=== PATIENT | male | born 1985 | race Caucasian/White ===

== ENCOUNTER 2020-03-12 14:19 | Inpatient (IN) | payer MEDICAID ==
[~2020-03-12] VITALS: Ht 165.1 cm; Wt 73.5 kg
[2020-03-12 15:26] LABS: BASOPHILS % 0.6 % (0.0-2.0); EOSINOPHILS % 1.8 % (0.0-5.0); HEMATOCRIT. 48.6 % (42.0-52.0); HEMOGLOBIN. 16.1 g/dL (14.0-18.0); LYMPHOCYTES % 22.2 % (20.0-50.0); MEAN CORPUSCULAR HEMOGLOBIN 32.6 pg (28.0-32.0); MEAN CORPUSCULAR VOLUME 98.7 fL (80.0-94.0); MEAN PLATELET VOLUME 10.2 fl (7.4-10.4); MONOCYTES % 6.1 % (2.0-8.0); NEUTROPHILS % 69.3 % (40.0-76.0); PLATELET 253 x1000/uL (130-400); RED BLOOD CELL COUNT 4.93 mill/uL (4.7-6.1); RED CELL DISTRIBUTION WIDTH 15.3 % (11.6-14.6)
[2020-03-12 15:28] LABS: CHLORIDE 94 mEq/L (98-107)
[2020-03-12 15:30] LABS: INR 1.1; PROTHROMBIN TIME 11.4 sec (9.6-11.0)
[2020-03-12] MEDS ORDERED: SODIUM CHLORIDE 0.9% 1,000 ML IV ONE (15:30)
[2020-03-12] MEDS ORDERED: MORPHINE SULFATE 4 MG/ML CPJ (NOT FOR IM USE) IV ONE (15:30)
[2020-03-12] MEDS ORDERED: INSULIN REGULAR (HUMULIN R) 300UNITS/3ML IV ONE (15:45)
[2020-03-12] MEDS ORDERED: CALCIUM GLUCONATE 1,000 MG in DEXT 5% WATER 100 ML IV ONE (15:45)
[2020-03-12] MEDS ORDERED: FUROSEMIDE 100MG/10ML VIAL IV ONE (15:45)
[2020-03-12] MEDS ORDERED: DEXTROSE 50% WATER 50ML SYRINGE IV ONE (15:45)
[2020-03-12 21:00] VITALS: BP 102/68
[2020-03-12] MEDS ORDERED: DIAZ2TAB3 PO (22:51)
[2020-03-12] MEDS ORDERED: FOLI-43 PO (22:51)
[2020-03-12] MEDS ORDERED: CHOL3000 PO (22:51)
[2020-03-12] MEDS ORDERED: ESCI5SOL2 PO (22:51)
[2020-03-12] MEDS ORDERED: ATOR40TA70 PO (22:51)
[2020-03-12] MEDS ORDERED: CETI10TA6 PO (22:51)
[2020-03-12] MEDS ORDERED: CALC-586 PO (22:51)
[2020-03-12] MEDS ORDERED: AMLO10TA80 PO (22:51)
[2020-03-12] MEDS ORDERED: LOSA50TA41 PO (22:51)
[2020-03-12] MEDS ORDERED: TRAZ-251 PO (22:51)
[2020-03-12] MEDS ORDERED: FOLI0.8T23 PO (22:51)
[2020-03-12] MEDS ORDERED: OLME1TAB84 PO (22:51)
[2020-03-12] MEDS ORDERED: LORA2ORA5 PO (22:51)
[2020-03-12] MEDS ORDERED: HYDR-4135 PO (22:51)
[2020-03-12] MEDS ORDERED: ASPI-1497 PO (22:51)
[2020-03-12] MEDS ORDERED: ALLO100T PO (22:51)
[2020-03-12] MEDS ORDERED: CALC668T PO (22:51)
[2020-03-12] MEDS ORDERED: METO10TA3 PO (22:51)
[2020-03-12] MEDS ORDERED: CALC0.5C10 PO (22:51)
[2020-03-12] MEDS ORDERED: MORPHINE SULFATE 2 MG/ML CPJ (NOT FOR IM USE) IV PRN (23:15)
[2020-03-12] MEDS ORDERED: DIAZEPAM 2 MG TABLET PO SCH (23:30)
[2020-03-12] MEDS ORDERED: FAMOTIDINE 20MG TABLET PO SCH (23:30)
[2020-03-13] VITALS: BP 99/73
[2020-03-13] MEDS ORDERED: TRAZODONE HCL 50MG TABLET PO SCH (03:00)
[2020-03-13 04:00] VITALS: BP 103/57
[2020-03-13] MEDS ORDERED: SEVELAMER CARBONATE 800 MG TABLET PO SCH (07:50)
[2020-03-13] MEDS ORDERED: CALCIUM ACETATE 667MG CAPSULE PO SCH (07:50)
[2020-03-13 08:30] VITALS: BP 101/62
[2020-03-13] MEDS ORDERED: HYDROCHLOROTHIAZIDE 12.5MG CAPSULE PO SCH (09:00)
[2020-03-13] MEDS ORDERED: CETIRIZINE 10MG TABLET PO SCH (09:00)
[2020-03-13] MEDS ORDERED: CITALOPRAM HYDROBROMIDE 10MG TABLET PO SCH (09:00)
[2020-03-13] MEDS ORDERED: METOPROLOL TARTRATE 50MG TABLET PO SCH (09:00)
[2020-03-13] MEDS ORDERED: ENOXAPARIN 40MG/0.4ML SYR SUBCUT SCH (09:00)
[2020-03-13] MEDS ORDERED: FOLIC ACID/VITAMIN B COMP W-C TABLET PO SCH ×2 (09:00)
[2020-03-13] MEDS ORDERED: ENOXAPARIN 30MG/0.3ML SYR SUBCUT SCH (09:00)
[2020-03-13] MEDS ORDERED: ATORVASTATIN CALCIUM 40MG TABLET PO SCH ×2 (09:00→21:00)
[2020-03-13] MEDS ORDERED: FOLIC ACID 1MG TABLET PO SCH (09:00)
[2020-03-13] MEDS ORDERED: ALLOPURINOL 100 MG TABLET PO SCH ×2 (09:00→17:00)
[2020-03-13] MEDS ORDERED: DIAZEPAM 2 MG TABLET PO SCH (09:00)
[2020-03-13] MEDS ORDERED: CALCITRIOL 0.5MCG CAPSULE PO SCH (09:00)
[2020-03-13] MEDS ORDERED: LOSARTAN POTASSIUM 100 MG TABLET PO SCH (09:00)
[2020-03-13] MEDS ORDERED: ASPIRIN 81MG EC TABLET PO SCH (09:00)
[2020-03-13 12:00] VITALS: BP 95/61
[2020-03-13 16:15] VITALS: BP 100/63
[2020-03-13] MEDS ORDERED: FAMOTIDINE 20MG TABLET PO SCH (21:00)
== END 2020-03-13 19:30 | disposition home or self-care (01) | DRG 249 ==
LOC: ER 14:44 → 6WST 17:15 → EDBEDREQ 17:18 → ENRESERV 20:11
PROVIDERS: ADMIT Internal Medicine; ATTEND Internal Medicine
PROC: 5A1D70Z Performance of Urinary Filtration, Intermittent, Less than 6 Hours Per Day (ICD-10-PCS; principal; 2020-03-12)
DX: K52.9 Noninfective gastroenteritis and colitis, unspecified (principal); D63.1 Anemia in chronic kidney disease; E78.5 Hyperlipidemia, unspecified; E87.1 Hypo-osmolality and hyponatremia; E87.5 Hyperkalemia; E87.8 Other disorders of electrolyte and fluid balance, not elsewhere classified; F41.9 Anxiety disorder, unspecified; I13.2 Hypertensive heart and chronic kidney disease with heart failure and with stage 5 chronic kidney disease, or end stage renal disease; N18.6 End stage renal disease; I50.9 Heart failure, unspecified; Z99.2 Dependence on renal dialysis; Z88.1 Allergy status to other antibiotic agents; Z88.8 Allergy status to other drugs, medicaments and biological substances; Z79.82 Long term (current) use of aspirin; Z79.899 Other long term (current) drug therapy
CPT/HCPCS: 36415; 74176; 80053; 82962; 85025; 93005; 96374; 99291; J0610; J1650; J1815; J1940; J2270; J7030; J7060

== ENCOUNTER 2020-06-01 12:17 | Emergency (ER) | payer MEDICAID ==
[~2020-06-01] VITALS: Ht 165.1 cm; Wt 77.0 kg
[~2020-06-01 12:17] MED LIST: ALLO100T PO; AMLO10TA80 PO; ASPI-1497 PO; ATOR40TA70 PO; CALC-586 PO; CALC0.5C10 PO; CALC668T PO; CETI10TA6 PO; CHOL3000 PO; DIAZ2TAB3 PO; ESCI5SOL2 PO; FOLI-43 PO; FOLI0.8T23 PO; HYDR-4135 PO; LORA2ORA5 PO; LOSA50TA41 PO; METO10TA3 PO; OLME1TAB84 PO; TRAZ-251 PO
[2020-06-01 13:56] LABS: BASOPHILS % 1.3 % (0.0-2.0); EOSINOPHILS % 2.6 % (0.0-5.0); HEMATOCRIT. 26.2 % (42.0-52.0); HEMOGLOBIN. 8.8 g/dL (14.0-18.0); LYMPHOCYTES % 19.2 % (20.0-50.0); MEAN CORPUSCULAR HEMOGLOBIN 33.7 pg (28.0-32.0); MEAN CORPUSCULAR VOLUME 99.9 fL (80.0-94.0); MEAN PLATELET VOLUME 9.4 fl (7.4-10.4); MONOCYTES % 8.9 % (2.0-8.0); PLATELET 245 x1000/uL (130-400); RED BLOOD CELL COUNT 2.62 mill/uL (4.7-6.1); RED CELL DISTRIBUTION WIDTH 16.2 % (11.6-14.6)
[2020-06-01 14:02] LABS: CHLORIDE 101 mEq/L (98-107)
[2020-06-01 14:14] LABS: PROTHROMBIN TIME 10.8 sec (9.6-11.0)
[2020-06-01 15:50] VITALS: BP 138/88
[2020-06-01] MEDS ORDERED: LORAZEPAM 0.5MG TABLET PO PRN (16:45)
[2020-06-01] MEDS ORDERED: CLONIDINE 0.1MG TABLET PO PRN (16:45)
[2020-06-01] MEDS ORDERED: ONDANSETRON HCL 4MG/2ML INJ IV PRN (16:45)
[2020-06-01] MEDS ORDERED: DOCUSATE SODIUM 100MG CAPSULE PO PRN (16:45)
[2020-06-01] MEDS ORDERED: HYDROCODONE/ACETAMINOPHEN 5/325MG TABLET PO PRN (16:45)
[2020-06-01] MEDS ORDERED: IPRATROPIUM/ALBUTEROL 0.5-3(2.5)MG/3ML NEB HHN PRN (16:45)
[2020-06-01] MEDS ORDERED: ACETAMINOPHEN 325MG TABLET PO PRN ×2 (16:45)
== END 2020-06-01 17:11 | disposition left against medical advice (07) ==
LOC: ER 12:17 → EDBEDREQTM 16:47 → EDBEDREQ 16:47 → ER 17:11 → CANBEDREQ 18:15
DX: I13.2 Hypertensive heart and chronic kidney disease with heart failure and with stage 5 chronic kidney disease, or end stage renal disease (principal); N18.6 End stage renal disease; Z99.2 Dependence on renal dialysis; Z79.899 Other long term (current) drug therapy
CPT/HCPCS: 36415; 71045; 80053; 85025; 87426; 93005; 99285